=== PATIENT | male | born 1955 | race Caucasian/White ===

== ENCOUNTER → 2017-03-24 | Outpatient (CLI) | payer BC ==
--- NOTE | 2017-03-25 09:59 | ECHOF ---
Referral Reason:Dyspnea R06.00 MEASUREMENTS -------- HEIGHT: 167.6 cm WEIGHT: 90.7 kg BP: 126/80 RVIDd: 3.1 cm (< 3.3) IVSd: 1.4 cm (0.6 - 1.1) LVIDd: 4.6 cm (3.9 - 5.3) LVPWd: 1.2 cm (0.6 - 1.1) IVSs: 2.0 cm LVIDs: 3.2 cm LVPWs: 1.5 cm LAESV Index (A-L): 13.31 ml/m Ao Diam: 3.6 cm (2.0 - 3.7) AV Cusp: 1.7 cm (1.5 - 2.6) LA Diam: 3.0 cm (2.7 - 3.8) MV EXCURSION: 24.707 mm (> 18.000) MV EF SLOPE: 160 mm/s (70 - 150) EPSS: 0.6 cm MV E Genaro: 0.62 m/s MV DecT: 250 ms MV A Genaro: 0.80 m/s MV E/A Ratio: 0.77 RAP: 5.00 mmHg RVSP: 8.15 mmHg FINDINGS -------- Sinus rhythm. This was a technically adequate study. There is mild concentric left ventricular hypertrophy. Overall left ventricular systolic function is normal with, an EF between 55 - 60 %. The right ventricle is normal in size and function. Normal LA size by volume 22+/-6 ml/m2. The right atrium is normal in size. The aortic valve is trileaflet, and appears structurally normal. No aortic stenosis or regurgitation. The mitral valve leaflets are mildly thickened. Mild mitral annular calcification present. There is trace mitral regurgitation. Trace tricuspid regurgitation present. There is no evidence of pulmonary hypertension. The right ventricular systolic pressure, as measured by Doppler, is 8.15mmHg. The pulmonic valve is normal. The aortic root size is normal. Normal inferior vena cava with normal inspiratory collapse consistent with estimated right atrial pressure of 5 mmHg. The pericardium is normal. There is no pericardial effusion. CONCLUSIONS -------- 1. Sinus rhythm. 2. There is no evidence of pulmonary hypertension. 3. The right ventricular systolic pressure, as measured by Doppler, is 8.15mmHg. 4. The aortic root size is normal. 5. There is no pericardial effusion. 6. There is mild concentric left ventricular hypertrophy. 7. Overall left ventricular systolic function is normal with, an EF between 55 - 60 %. 8. Normal LA size by volume 22+/-6 ml/m2. 9. The aortic valve is trileaflet, and appears structurally normal. No aortic stenosis or regurgitation. 10. The mitral valve leaflets are mildly thickened. 11. Mild mitral annular calcification present. 12. There is trace mitral regurgitation. 13. Trace tricuspid regurgitation present. [employer]SEM[employer]ER: Kris Baca RDCS
--- NOTE | 2017-03-25 10:40 | EST ---
DATE OF SERVICE: 03/24/2017 AGE: 61Y SEX: M HT: 77 WT: 200 lbs. Protocol Mekhi: X Other: Stage: III Dur. of Exercise: 10 minutes *Heart Rate Blood Pressure *Rest: 65 Rest: 125/81 * *Max. Achieved: 121 Maximum BP: 212/86 85% PMHR: 136 100% PMHR: 160 *METS: 11.5 INDICATIONS: Short of breath. MEDICATIONS: Patient was exercised for a total period of 10 minutes. A peak heart rate of 121 was achieved. Maximum blood pressure of 212/86 mmHg was noted. Patient complained of right-sided shoulder and chest discomfort, which was atypical pain. Resting EKG shows normal sinus rhythm with normal AR interval and QRS duration and normal ST-T waves. ST segment depression suggestive of ischemia was noted. IMPRESSION: 1. This exercise test is not suggestive of ischemia. 2. Patient complained of atypical right-sided discomfort during exercise. 3. EKG portion of the stress test is not suggestive of ischemia.
== END | disposition home or self-care (01) ==
LOC: RADNMMAIN 11:24
PROVIDERS: ATTEND Family Medicine
DX: I08.1 Rheumatic disorders of both mitral and tricuspid valves (principal)
CPT/HCPCS: 93017; 93306

== ENCOUNTER 2017-06-15 08:41 | Emergency (ER) | payer BC ==
[2017-06-15 08:53] VITALS: BP 120/64; PULSE 64; TEMP 98.1
--- NOTE | 2017-06-15 09:23 | ED ---
General Adult HPI - General Chief complaint: Allergic Reaction Stated complaint: Allergic/hives Time Seen by Provider: 06/15/17 08:59 Source: patient, RN notes reviewed Mode of arrival: ambulatory Limitations: no limitations - History of Present Illness Initial comments: Patient 62-year-old male who presents emergency room today with chief complaint of hives. He doesn't that he's been having hives off and on over the last 15 years. States is followed the family doctor about this. States he's been told to take Pepcid for antihistamine as needed. Patient admits that today after taking his usual supplements and vitamins began breaking out in hives and rash across his torso and upper extremities. Patient admits that he took his Pepcid this morning. He states that since arriving here to the ER he has felt better symptoms are not as severe. At this time he feels comfortable. Patient denies any recent fever, chills, shortness of breath, chest pain, back pain, abdominal pain, nausea or vomiting, numbness or tingling, dysuria or hematuria, constipation or diarrhea, headaches or visual changes, or any other complaints. - Related Data Previous Rx's Medication Instructions Recorded predniSONE 50 mg PO DAILY #5 tab 06/15/17 Allergies Allergy/AdvReac Type Severity Reaction Status Date / Time No Known Allergies Allergy Verified 06/15/17 08:53 Review of Systems ROS Statement: Those systems with pertinent positive or pertinent negative responses have been documented in the HPI. ROS Other: All systems not noted in ROS Statement are negative. Past Medical History Additional Past Medical History / Comment(s): constant hives History of Any Multi-Drug Resistant Organisms: None Reported Past Surgical History: Orthopedic Surgery Additional Past Surgical History / Comment(s): ankle Past Psychological History: No Psychological Hx Reported Smoking Status: Never smoker Past Alcohol Use History: None Reported Past Drug Use History: None Reported General Exam - General Exam Comments Initial Comments: General: The patient is awake and alert, in no distress, and does not appear acutely ill. Eye: Pupils are equal, round and reactive to light, extra-ocular movements are intact. No nystagmus. There is normal conjunctiva bilaterally. No signs of icterus. Ears, nose, mouth and throat: There are moist mucous membranes and no oral lesions. No angioedema. Neck: The neck is supple, there is no tenderness or JVD. Cardiovascular: There is a regular rate and rhythm. No murmur, rub or gallop is appreciated. Respiratory: Lungs are clear to auscultation, respirations are non-labored, breath sounds are equal. No wheezes, stridor, rales, or rhonchi. Gastrointestinal: Soft, non-distended, non-tender abdomen without masses or organomegaly noted. There is no rebound or guarding present. No CVA tenderness. Bowel sounds are unremarkable. Musculoskeletal: Normal ROM, no tenderness. Strength 5/5. Sensation intact. Pulses equal bilaterally 2+. Neurological: A&O x 3. CN II-XII intact, There are no obvious motor or sensory deficits. Coordination appears grossly intact. Speech is normal. Skin: Redness to the anterior torso and volar aspect of the upper tremors. Psychiatric: Cooperative, appropriate mood & affect, normal judgment. Limitations: no limitations Course Vital Signs 06/15/17 08:51 Temperature 98.1 F Pulse Rate 64 Respiratory 20 Rate Blood Pressure 120/64 O2 Sat by Pulse 99 Oximetry Medical Decision Making - Medical Decision Making Was discussed with patient about a dose of steroids here in emergency room. He states he is feeling better does not want take steroids. Patient states all the symptoms are resolving. Rashes improved. He'll be given a prescription for steroids to go home with to use if symptoms increase or was discussed about possibility of this reaction becoming worse and needing steroids. He is advised to return to emergency room symptoms increase or worsen or for any other concerns. He states understanding Disposition Clinical Impression: Hives Disposition: HOME SELF-CARE Condition: Good Instructions: Urticaria (ED) Additional Instructions: Please use medication as discussed. Please follow-up with family doctor in the next 2 days of symptoms have not improved. Please return to emergency room if the symptoms increase or worsen or for any other concerns. Prescriptions: predniSONE 50 mg PO DAILY #5 tab Referrals: Tevin Corley DO [Primary Care Provider] - 1-2 days Time of Disposition: 09:22
[2017-06-15 09:39] VITALS: RESP 16
== END 2017-06-15 09:37 | disposition home or self-care (01) ==
LOC: EC 08:41
DX: L50.0 Allergic urticaria (principal)
CPT/HCPCS: 99283